=== PATIENT | female | born 1950 | race Two or more races ===

== ENCOUNTER 2017-08-28 01:18 | Emergency (ER) | payer OTHER ==
[2017-08-28 04:45] LABS: URINE APPEARANCE CLEAR; URINE BILIRUBIN NEGATIVE (<2.0 mg/dL); URINE COLOR COLORLESS; URINE GLUCOSE (UA) NEGATIVE (NEGATIVE); URINE KETONE NEGATIVE (NEGATIVE); URINE LEUK ESTERASE NEGATIVE (NEGATIVE); URINE NITRITE NEGATIVE (NEGATIVE); URINE UROBILINOGEN NEGATIVE mg/dL (0.2-1.0)
[2017-08-28 04:49] LABS: URINE PROTEIN 2+ (NEGATIVE)
[2017-08-28 05:03] LABS: URINE MUCUS RARE
[2017-08-28 05:09] LABS: WHITE BLOOD COUNT 10.8 K/mm3 (4.0-10.0)
[2017-08-28 05:10] LABS: BASO % 0.6 % (0-2.0); EOS % 2.4 % (0-4.5); HEMATOCRIT 34.1 % (32.4-45.2); HEMOGLOBIN 11.2 GM/dL (10.7-15.3); LYMPH % 22.8 % (8-40); MCH 26.2 pg (25.7-33.7); MCHC 32.8 g/dl (32.0-36.0); MEAN CELL VOLUME 79.8 fl (80-96); MEAN PLT VOLUME 10.8 fl (7.5-11.1); MONO % 7.7 % (3.8-10.2); NEUT % 66.5 % (42.8-82.8); PLATELET COUNT 162 K/MM3 (134-434); RBC 4.27 M/mm3 (3.60-5.2); RDW 15.6 % (11.6-15.6)
[2017-08-28 05:22] LABS: ALBUMIN 3.7 g/dl (3.4-5.0); ALK PHOS 109 U/L (45-117); ANION GAP 12 (8-16); BILIRUBIN,TOTAL 0.3 mg/dL (0.2-1.0); BLOOD UREA NITROGEN 67 mg/dL (7-18); CALCIUM 9.5 mg/dL (8.5-10.1); CHLORIDE 102 mmol/L (98-107); CO2 26 mmol/L (21-32); CREATININE 3.9 mg/dL (0.55-1.02); GLUCOSE,RANDOM 100 mg/dL (74-106); POTASSIUM 4.2 mmol/L (3.5-5.1); SGOT/AST 27 U/L (15-37); SGPT/ALT 34 U/L (12-78); SODIUM 140 mmol/L (136-145); TOT PROT 7.1 g/dl (6.4-8.2)
--- NOTE | 2017-09-04 13:15 | EKG ---
Test Reason : Blood Pressure : / mmHG Vent. Rate : 058 BPM Atrial Rate : 058 BPM P-R Int : 146 ms QRS Dur : 086 ms QT Int : 464 ms P-R-T Axes : 070 014 069 degrees QTc Int : 455 ms POOR DATA QUALITY, INTERPRETATION MAY BE ADVERSELY AFFECTED SINUS BRADYCARDIA OTHERWISE NORMAL ECG NO PREVIOUS ECGS AVAILABLE Confirmed by ANA LILIA DELGADILLO MD ([id number]) on 09/04/2017 1:15:39 PM Referred By: Confirmed By:ANA LILIA DELGADILLO MD
== END 2017-08-28 06:40 | disposition home or self-care (01) ==
LOC: JER 01:18 → JDEL 01:18 → JER 06:40
PROC: 3E033GC Introduction of Other Therapeutic Substance into Peripheral Vein, Percutaneous Approach (ICD-10-PCS; principal; 2017-08-28)
DX: E11.21 Type 2 diabetes mellitus with diabetic nephropathy (principal); E11.649 Type 2 diabetes mellitus with hypoglycemia without coma; Z79.4 Long term (current) use of insulin; N18.4 Chronic kidney disease, stage 4 (severe)
CPT/HCPCS: 36415; 70450-TC; 80053; 81003; 81015; 85025; 87077; 87086; 93005; 93010; 99281-25